=== PATIENT | female | born 1985 | race African-American/Black ===

== ENCOUNTER 2020-10-21 09:40 | Inpatient (IN) | payer OTHER ==
[2020-10-21] MEDS ORDERED: ACETAMINOPHEN 1000 MG/100 ML VIAL (NON FORMULARY) IVPB ONE (10:42)
[2020-10-21] MEDS ORDERED: SODIUM CHLORIDE 0.9% 500 ML INFUS.BAG IV ONE (10:42)
[2020-10-21] MEDS ORDERED: ACETAMINOPHEN INJECTION 100 ML IVPB ONE (10:47)
[2020-10-21 11:52] LABS: VENOUS BASE EXCESS 4.1 mmol/L (-2-2); VENOUS O2 SATURATION 54.7 % (70-80); VENOUS PCO2 65.4 mmHg (38-52); VENOUS PH 7.325 (7.310-7.410)
[2020-10-21 11:59] LABS: BASO % 0.3 % (0-2.0); EOS % 0.6 % (0-4.5); HEMATOCRIT 38.8 % (32.4-45.2); HEMOGLOBIN 13.1 GM/dL (10.7-15.3); LYMPH % 23.9 % (8-40); MCH 30.2 pg (25.7-33.7); MCHC 33.8 g/dl (32.0-36.0); MEAN CELL VOLUME 89.5 fl (80-96); MEAN PLT VOLUME 8.2 fl (7.5-11.1); MONO % 11.3 % (3.8-10.2); NEUT % 63.9 % (42.8-82.8); PLATELET COUNT 299 K/MM3 (134-434); RBC 4.34 M/mm3 (3.60-5.2); RDW 13.1 % (11.6-15.6); WHITE BLOOD COUNT 6.1 K/mm3 (4.0-10.0)
[2020-10-21 12:00] LABS: INR 1.18 (0.83-1.09); PROTHROMBIN TIME (PATIENT) 14.2 SEC (9.7-13.0)
[2020-10-21 12:03] LABS: ACTIVATED PTT 35.3 SECONDS (25.2-36.5)
[2020-10-21 12:29] LABS: CHLORIDE 99 mmol/L (98-107); POTASSIUM 3.8 mmol/L (3.5-5.1); SODIUM 138 mmol/L (136-145)
[2020-10-21 12:32] LABS: ALBUMIN 3.2 g/dl (3.4-5.0); ANION GAP 8 MMOL/L (8-16); BLOOD UREA NITROGEN 8.4 mg/dL (7-18); CALCIUM 8.6 mg/dL (8.5-10.1); CO2 31 mmol/L (21-32); GLUCOSE,RANDOM 110 mg/dL (74-106)
[2020-10-21 12:35] LABS: BILIRUBIN,DIRECT 0.1 mg/dL (0.0-0.2); CREATININE 0.7 mg/dL (0.55-1.3); SGOT/AST 12 U/L (15-37); SGPT/ALT 19 U/L (13-61)
[2020-10-21 12:36] LABS: BILIRUBIN,TOTAL 0.3 mg/dL (0.2-1); LDH 232 U/L (84-246)
[2020-10-21 12:37] LABS: TOT PROT 7.3 g/dl (6.4-8.2)
[2020-10-21 12:38] LABS: ALK PHOS 79 U/L (45-117)
[2020-10-21 12:41] LABS: N-TERMINAL BNP 10.5 pg/ml (5-125)
[2020-10-21] MEDS ORDERED: DEXAMETHASONE SOD PHOSPHATE 10 MG/1 ML VIAL IVPUSH ONE (13:04)
[2020-10-21 13:26] LABS: EPI CELLS >36 /uL (0-25.1); HYALINE CASTS 2 /uL (0-3.1); PH,URINE 6.5 (5.0-8.0); URINE APPEARANCE CLOUDY; URINE BACTERIA 1062 /uL (0-1359); URINE BILIRUBIN NEGATIVE (NEGATIVE); URINE COLOR YELLOW; URINE GLUCOSE (UA) NEGATIVE (NEGATIVE); URINE KETONE NEGATIVE (NEGATIVE); URINE LEUK ESTERASE TRACE (NEGATIVE); URINE NITRITE NEGATIVE (NEGATIVE); URINE PROTEIN NEGATIVE (NEGATIVE); URINE UROBILINOGEN 0.2 mg/dL (0.2-1.0); URINE WBC 25 /uL (0-25.8)
[2020-10-21 13:53] LABS: URINE RBC 191.7 /uL (0-23.9); YEAST NON SEEN (NEGATIVE)
[2020-10-21] MEDS ORDERED: DEXAMETHASONE SOD PHOSPHATE 10 MG/1 ML VIAL ONE (13:58)
[2020-10-21] MEDS: OSELTAMIVIR PHOSPHATE 75 MG CAPSULE PO SCH ×2 (18:46→22:07)
[2020-10-22] MEDS: BENZOCAINE/MENTH/CETYLPYRD CL 1 EACH LOZENGE MM PRN ×2 (05:01→19:37)
[2020-10-22 05:32] VITALS: BMI 66.9
[2020-10-22 07:50] LABS: BASO % 0.2 % (0-2.0); EOS % 0.1 % (0-4.5); HEMATOCRIT 38.1 % (32.4-45.2); LYMPH % 23.6 % (8-40); MCH 30.3 pg (25.7-33.7); MCHC 34.1 g/dl (32.0-36.0); MEAN CELL VOLUME 88.8 fl (80-96); MONO % 10.1 % (3.8-10.2); PLATELET COUNT 309 K/MM3 (134-434); RBC 4.29 M/mm3 (3.60-5.2)
[2020-10-22 08:24] LABS: POTASSIUM 4.2 mmol/L (3.5-5.1)
[2020-10-22 08:47] LABS: CALCIUM 8.5 mg/dL (8.5-10.1)
[2020-10-22 08:49] LABS: BLOOD UREA NITROGEN 7.2 mg/dL (7-18)
[2020-10-22 08:50] LABS: ALBUMIN 3.1 g/dl (3.4-5.0); MAGNESIUM 1.9 mg/dL (1.8-2.4)
[2020-10-22 08:53] LABS: CREATININE 0.6 mg/dL (0.55-1.3); PHOSPHOROUS 3.6 mg/dL (2.5-4.9)
[2020-10-22 08:54] LABS: BILIRUBIN,TOTAL 0.3 mg/dL (0.2-1)
[2020-10-22 08:55] LABS: TOT PROT 7.3 g/dl (6.4-8.2)
[2020-10-22] MEDS ORDERED: ENOXAPARIN NA (PORCINE) 40 MG/0.4 ML DISP.SYRIN SQ SCH (10:00)
[2020-10-22] MEDS: DEXAMETHASONE SOD PHOSPHATE 4 MG/1 ML VIAL IVPUSH SCH (11:10)
[2020-10-22] MEDS: OSELTAMIVIR PHOSPHATE 75 MG CAPSULE PO SCH ×2 (11:10→22:31)
[2020-10-22] MEDS ORDERED: REMDESIVIR 200 MG in SODIUM CHLORIDE 210 ML IVPB ONE (13:00)
[2020-10-22] MEDS ORDERED: guaiFENesin 200 MG/10 ML 10 ML UNIT-DOSE CUPS PO PRN (18:37)
[2020-10-22] MEDS: ENOXAPARIN NA (PORCINE) 40 MG/0.4 ML DISP.SYRIN SQ SCH (22:31)
[2020-10-23] MEDS: OSELTAMIVIR PHOSPHATE 75 MG CAPSULE PO SCH ×2 (09:31→21:35)
[2020-10-23] MEDS: ENOXAPARIN NA (PORCINE) 40 MG/0.4 ML DISP.SYRIN SQ SCH ×2 (09:31→21:34)
[2020-10-23] MEDS: DEXAMETHASONE SOD PHOSPHATE 4 MG/1 ML VIAL IVPUSH SCH (09:32)
[2020-10-23 10:28] LABS: HEMATOCRIT 38.6 % (32.4-45.2); HEMOGLOBIN 12.8 GM/dL (10.7-15.3); MCH 29.8 pg (25.7-33.7); MCHC 33.2 g/dl (32.0-36.0); MEAN CELL VOLUME 89.9 fl (80-96); MEAN PLT VOLUME 7.8 fl (7.5-11.1); PLATELET COUNT 360 K/MM3 (134-434); RDW 13.5 % (11.6-15.6); WHITE BLOOD COUNT 8.8 K/mm3 (4.0-10.0)
[2020-10-23] MEDS: BENZOCAINE/MENTH/CETYLPYRD CL 1 EACH LOZENGE MM PRN ×2 (10:35→17:27)
[2020-10-23 11:15] LABS: ALBUMIN 3.2 g/dl (3.4-5.0); BLOOD UREA NITROGEN 11.4 mg/dL (7-18)
[2020-10-23 11:16] LABS: CREATININE 0.8 mg/dL (0.55-1.3)
[2020-10-23 11:17] LABS: PHOSPHOROUS 3.8 mg/dL (2.5-4.9)
[2020-10-23 11:18] LABS: BILIRUBIN,TOTAL 0.4 mg/dL (0.2-1); TOT PROT 7.3 g/dl (6.4-8.2)
[2020-10-23 11:27] LABS: POTASSIUM 3.8 mmol/L (3.5-5.1)
[2020-10-23] MEDS: REMDESIVIR 100 MG in SODIUM CHLORIDE 230 ML IVPB SCH (12:53)
[2020-10-23 17:31] LABS: N-TERMINAL BNP 7.5 pg/ml (5-125)
[2020-10-24] MEDS: ENOXAPARIN NA (PORCINE) 40 MG/0.4 ML DISP.SYRIN SQ SCH ×2 (09:54→22:08)
[2020-10-24] MEDS: OSELTAMIVIR PHOSPHATE 75 MG CAPSULE PO SCH ×2 (09:54→22:08)
[2020-10-24] MEDS: DEXAMETHASONE SOD PHOSPHATE 4 MG/1 ML VIAL IVPUSH SCH (09:54)
[2020-10-24 10:27] LABS: HEMATOCRIT 38.4 % (32.4-45.2); HEMOGLOBIN 12.8 GM/dL (10.7-15.3); MCHC 33.4 g/dl (32.0-36.0); MEAN PLT VOLUME 7.9 fl (7.5-11.1); PLATELET COUNT 358 K/MM3 (134-434); RBC 4.27 M/mm3 (3.60-5.2); RDW 13.4 % (11.6-15.6); WHITE BLOOD COUNT 7.8 K/mm3 (4.0-10.0)
[2020-10-24 10:43] LABS: POTASSIUM 3.6 mmol/L (3.5-5.1)
[2020-10-24 10:46] LABS: ALBUMIN 3.3 g/dl (3.4-5.0); CALCIUM 9.1 mg/dL (8.5-10.1)
[2020-10-24 10:49] LABS: CREATININE 0.7 mg/dL (0.55-1.3)
[2020-10-24 10:51] LABS: BILIRUBIN,TOTAL 0.6 mg/dL (0.2-1)
[2020-10-24 10:52] LABS: TOT PROT 7.8 g/dl (6.4-8.2)
[2020-10-24] MEDS: REMDESIVIR 100 MG in SODIUM CHLORIDE 230 ML IVPB SCH (13:01)
[2020-10-25 08:31] LABS: HEMATOCRIT 37.5 % (32.4-45.2); HEMOGLOBIN 12.7 GM/dL (10.7-15.3); MCH 30.2 pg (25.7-33.7); MCHC 33.8 g/dl (32.0-36.0); MEAN CELL VOLUME 89.4 fl (80-96); MEAN PLT VOLUME 7.8 fl (7.5-11.1); PLATELET COUNT 364 K/MM3 (134-434); RDW 13.3 % (11.6-15.6); WHITE BLOOD COUNT 6.8 K/mm3 (4.0-10.0)
[2020-10-25 09:03] LABS: POTASSIUM 4.1 mmol/L (3.5-5.1)
[2020-10-25 09:11] LABS: CALCIUM 8.9 mg/dL (8.5-10.1)
[2020-10-25 09:14] LABS: CREATININE 0.6 mg/dL (0.55-1.3)
[2020-10-25] MEDS: DEXAMETHASONE SOD PHOSPHATE 4 MG/1 ML VIAL IVPUSH SCH (09:37)
[2020-10-25] MEDS: ENOXAPARIN NA (PORCINE) 40 MG/0.4 ML DISP.SYRIN SQ SCH ×2 (09:37→21:07)
[2020-10-25] MEDS: OSELTAMIVIR PHOSPHATE 75 MG CAPSULE PO SCH ×2 (09:37→21:07)
[2020-10-25] MEDS: REMDESIVIR 100 MG in SODIUM CHLORIDE 230 ML IVPB SCH (13:31)
[2020-10-26 06:40] VITALS: BP 132/80; PULSE 50; TEMP 98
[2020-10-26 09:05] LABS: HEMATOCRIT 37.6 % (32.4-45.2); HEMOGLOBIN 12.3 GM/dL (10.7-15.3); MCH 29.4 pg (25.7-33.7); MCHC 32.8 g/dl (32.0-36.0); MEAN CELL VOLUME 89.7 fl (80-96); MEAN PLT VOLUME 7.7 fl (7.5-11.1); PLATELET COUNT 396 K/MM3 (134-434); RBC 4.19 M/mm3 (3.60-5.2); RDW 13.3 % (11.6-15.6); WHITE BLOOD COUNT 9.4 K/mm3 (4.0-10.0)
[2020-10-26 09:57] LABS: ALBUMIN 3.1 g/dl (3.4-5.0); BLOOD UREA NITROGEN 12.8 mg/dL (7-18); CALCIUM 8.8 mg/dL (8.5-10.1)
[2020-10-26 10:02] LABS: BILIRUBIN,TOTAL 1.2 mg/dL (0.2-1); TOT PROT 7.5 g/dl (6.4-8.2)
[2020-10-26 10:03] LABS: CREATININE 0.6 mg/dL (0.55-1.3)
[2020-10-26] MEDS: ENOXAPARIN NA (PORCINE) 40 MG/0.4 ML DISP.SYRIN SQ SCH ×2 (10:48→22:01)
[2020-10-26] MEDS: OSELTAMIVIR PHOSPHATE 75 MG CAPSULE PO SCH (10:49)
[2020-10-26] MEDS: DEXAMETHASONE SOD PHOSPHATE 4 MG/1 ML VIAL IVPUSH SCH (10:49)
[2020-10-26] MEDS: REMDESIVIR 100 MG in SODIUM CHLORIDE 230 ML IVPB SCH (12:31)
== END 2020-10-26 22:40 | disposition home or self-care (01) | DRG 137 ==
LOC: JER 09:40 → JERBED 12:56 → J8W 10-22 04:22
PROVIDERS: ADMIT Internal Medicine; ATTEND Internal Medicine
PROC: XW13325 Transfusion of Convalescent Plasma (Nonautologous) into Peripheral Vein, Percutaneous Approach, New Technology Group 5 (ICD-10-PCS; principal; 2020-10-22)
PROC: XW033E5 Introduction of Remdesivir Anti-infective into Peripheral Vein, Percutaneous Approach, New Technology Group 5 (ICD-10-PCS; 2020-10-22)
DX: U07.1 COVID-19 (principal); J96.01 Acute respiratory failure with hypoxia; J12.82 Pneumonia due to coronavirus disease 2019; J10.08 Influenza due to other identified influenza virus with other specified pneumonia; E66.01 Morbid (severe) obesity due to excess calories; Z68.44 Body mass index [BMI] 60.0-69.9, adult; J98.11 Atelectasis; J20.8 Acute bronchitis due to other specified organisms; F17.210 Nicotine dependence, cigarettes, uncomplicated; J44.0 Chronic obstructive pulmonary disease with (acute) lower respiratory infection; R73.03 Prediabetes
CPT/HCPCS: 36415; 36430; 71045-TC-FY; 80048; 80053; 80061; 81003; 82248; 82550; 82728; 82803; 83036; 83605; 83615; 83721; 83735; 83880; 84100; 84443; 84484; 84703; 85025; 85027; 85379; 85610; 85730; 86140; 86850; 86900; 86901; 87040; 87086; 87804; 87899; 93005; 93010; 94761; 99285-25; C9399; C9803; J0131; J1100; P9017; U0003

== ENCOUNTER 2022-08-07 13:43 | Inpatient (IN) | payer OTHER ==
[2022-08-07 18:52] LABS: BASO % 0.3 % (0-2.0); EOS % 2.3 % (0-4.5); HEMATOCRIT 38.4 % (32.4-45.2); HEMOGLOBIN 12.7 GM/dL (10.7-15.3); LYMPH % 30.2 % (8-40); MCH 29.7 pg (25.7-33.7); MCHC 33.1 g/dl (32.0-36.0); MEAN CELL VOLUME 89.8 fl (80-96); MEAN PLT VOLUME 8.1 fl (7.5-11.1); MONO % 15.9 % (3.8-10.2); NEUT % 51.3 % (42.8-82.8); PLATELET COUNT 367 10^3/uL (134-434); RBC 4.28 M/mm3 (3.60-5.2); RDW 14.1 % (11.6-15.6)
[2022-08-07 19:01] LABS: INR 1.14 (0.83-1.09); PROTHROMBIN TIME (PATIENT) 13.1 SEC (9.7-13.0)
[2022-08-07 19:04] LABS: ACTIVATED PTT 31.4 SECONDS (25.2-36.5)
[2022-08-07 20:55] LABS: ALBUMIN 3.4 g/dl (3.4-5.0); BLOOD UREA NITROGEN 7.4 mg/dL (7-18); CALCIUM 8.4 mg/dL (8.5-10.1)
[2022-08-07 20:59] LABS: CREATININE 0.6 mg/dL (0.55-1.3)
[2022-08-07 21:00] LABS: BILIRUBIN,TOTAL 0.3 mg/dL (0.2-1); TOT PROT 7.5 g/dl (6.4-8.2)
[2022-08-07] MEDS ORDERED: ALBUTEROL SO4 2.5/IPRATROPIUM 0.5 INH SOL 3 ML VIAL.NEB. NEB PRN (23:57)
[2022-08-07] MEDS ORDERED: ALBUTEROL SO4 HFA INHALER IH PRN (23:57)
[2022-08-08] MEDS ORDERED: REMDESIVIR 200 MG in SODIUM CHLORIDE 250 ML IVPB ONE (02:00)
[2022-08-08] MEDS: DEXAMETHASONE SOD PHOSPHATE 10 MG/1 ML VIAL IVPUSH SCH (10:01)
[2022-08-08] MEDS: ENOXAPARIN NA (PORCINE) 40 MG/0.4 ML DISP.SYRIN SQ SCH (10:01)
[2022-08-08] MEDS: BUDESONIDE/FORMETEROL FUMARATE 80/4.5 mcg INHALER IH SCH ×2 (10:21→22:14)
[2022-08-08 11:55] LABS: BASO % 0.6 % (0-2.0); EOS % 3.3 % (0-4.5); HEMATOCRIT 39.2 % (32.4-45.2); HEMOGLOBIN 12.8 GM/dL (10.7-15.3); LYMPH % 26.6 % (8-40); MCH 29.5 pg (25.7-33.7); MCHC 32.6 g/dl (32.0-36.0); MEAN CELL VOLUME 90.6 fl (80-96); MEAN PLT VOLUME 8.2 fl (7.5-11.1); MONO % 13.7 % (3.8-10.2); NEUT % 55.8 % (42.8-82.8); PLATELET COUNT 360 10^3/uL (134-434); RBC 4.33 M/mm3 (3.60-5.2); RDW 14.3 % (11.6-15.6); WHITE BLOOD COUNT 8.3 K/mm3 (4.0-10.0)
[2022-08-08 12:31] LABS: ALBUMIN 3.3 g/dl (3.4-5.0)
[2022-08-08 12:32] LABS: CREATININE 0.7 mg/dL (0.55-1.3); TOT PROT 7.8 g/dl (6.4-8.2)
[2022-08-08 12:34] LABS: CALCIUM 8.9 mg/dL (8.5-10.1)
[2022-08-08 12:35] LABS: MAGNESIUM 2.2 mg/dL (1.8-2.4); PHOSPHOROUS 4.9 mg/dL (2.5-4.9)
[2022-08-08 12:41] LABS: BILIRUBIN,TOTAL 0.4 mg/dL (0.2-1)
[2022-08-08 15:14] LABS: ARTERIAL BLD GAS O2 SATURATION 96.4 % (95-98); ARTERIAL BLOOD GAS BASE EXCESS 9.4 mmol/L (-2-2); ARTERIAL BLOOD GAS PO2 89.9 mmHg (80-100); ARTERIAL BLOOD GAS pH 7.375 (7.350-7.450)
[2022-08-08 15:15] LABS: ALLENS TEST POSITIVE
[2022-08-09] MEDS: REMDESIVIR 100 MG in SODIUM CHLORIDE 250 ML IVPB SCH (03:20)
[2022-08-09] MEDS: ENOXAPARIN NA (PORCINE) 40 MG/0.4 ML DISP.SYRIN SQ SCH ×2 (09:12→21:50)
[2022-08-09] MEDS: DEXAMETHASONE SOD PHOSPHATE 10 MG/1 ML VIAL IVPUSH SCH (09:12)
[2022-08-09] MEDS: BUDESONIDE/FORMETEROL FUMARATE 80/4.5 mcg INHALER IH SCH ×2 (09:13→21:50)
[2022-08-09 10:47] LABS: BASO % 0.2 % (0-2.0); EOS % 1.9 % (0-4.5); HEMATOCRIT 37.6 % (32.4-45.2); HEMOGLOBIN 12.2 GM/dL (10.7-15.3); MCH 29.4 pg (25.7-33.7); MCHC 32.5 g/dl (32.0-36.0); MEAN CELL VOLUME 90.4 fl (80-96); MEAN PLT VOLUME 7.9 fl (7.5-11.1); MONO % 10.7 % (3.8-10.2); NEUT % 57.2 % (42.8-82.8); PLATELET COUNT 376 10^3/uL (134-434); RBC 4.16 M/mm3 (3.60-5.2); RDW 14.2 % (11.6-15.6); WHITE BLOOD COUNT 7.1 K/mm3 (4.0-10.0)
[2022-08-09 11:06] LABS: ALBUMIN 3.1 g/dl (3.4-5.0); CALCIUM 8.8 mg/dL (8.5-10.1)
[2022-08-09 11:09] LABS: CREATININE 0.7 mg/dL (0.55-1.3)
[2022-08-09 11:11] LABS: BILIRUBIN,TOTAL 0.6 mg/dL (0.2-1); TOT PROT 7.1 g/dl (6.4-8.2)
[2022-08-10] MEDS: REMDESIVIR 100 MG in SODIUM CHLORIDE 250 ML IVPB SCH (02:23)
[2022-08-10] MEDS: DEXAMETHASONE SOD PHOSPHATE 10 MG/1 ML VIAL IVPUSH SCH (10:15)
[2022-08-10] MEDS: ENOXAPARIN NA (PORCINE) 40 MG/0.4 ML DISP.SYRIN SQ SCH ×2 (10:15→21:27)
[2022-08-10] MEDS: BUDESONIDE/FORMETEROL FUMARATE 80/4.5 mcg INHALER IH SCH ×2 (10:23→21:28)
[2022-08-10 13:32] VITALS: BMI 60.0
[2022-08-11] MEDS: REMDESIVIR 100 MG in SODIUM CHLORIDE 250 ML IVPB SCH (01:15)
[2022-08-11] MEDS: DEXAMETHASONE SOD PHOSPHATE 10 MG/1 ML VIAL IVPUSH SCH (09:31)
[2022-08-11] MEDS: ENOXAPARIN NA (PORCINE) 40 MG/0.4 ML DISP.SYRIN SQ SCH ×2 (09:32→22:00)
[2022-08-11] MEDS: BUDESONIDE/FORMETEROL FUMARATE 80/4.5 mcg INHALER IH SCH ×2 (09:32→22:00)
[2022-08-11 12:06] LABS: BASO % 0.7 % (0-2.0); EOS % 0.6 % (0-4.5); HEMATOCRIT 36.3 % (32.4-45.2); HEMOGLOBIN 11.8 GM/dL (10.7-15.3); MCH 29.3 pg (25.7-33.7); MCHC 32.5 g/dl (32.0-36.0); MEAN CELL VOLUME 89.9 fl (80-96); MEAN PLT VOLUME 8.2 fl (7.5-11.1); MONO % 9.9 % (3.8-10.2); NEUT % 52.8 % (42.8-82.8); PLATELET COUNT 387 10^3/uL (134-434); RBC 4.04 M/mm3 (3.60-5.2); RDW 13.9 % (11.6-15.6); WHITE BLOOD COUNT 8.1 K/mm3 (4.0-10.0)
[2022-08-11 12:37] LABS: CALCIUM 8.5 mg/dL (8.5-10.1)
[2022-08-11 12:38] LABS: BLOOD UREA NITROGEN 13.4 mg/dL (7-18)
[2022-08-11 12:41] LABS: CREATININE 0.7 mg/dL (0.55-1.3)
[2022-08-12] MEDS: REMDESIVIR 100 MG in SODIUM CHLORIDE 250 ML IVPB SCH (02:11)
[2022-08-12] MEDS ORDERED: guaiFENesin/D-METHORPHAN HB 10 ML UNIT-DOSE CUPS PO PRN (08:56)
[2022-08-12] MEDS: DEXAMETHASONE SOD PHOSPHATE 10 MG/1 ML VIAL IVPUSH SCH (10:31)
[2022-08-12] MEDS: ENOXAPARIN NA (PORCINE) 40 MG/0.4 ML DISP.SYRIN SQ SCH (10:32)
[2022-08-12] MEDS: BUDESONIDE/FORMETEROL FUMARATE 80/4.5 mcg INHALER IH SCH (10:32)
[2022-08-12 11:32] LABS: BASO % 0.4 % (0-2.0); EOS % 0.5 % (0-4.5); HEMATOCRIT 36.6 % (32.4-45.2); LYMPH % 30.1 % (8-40); MCH 29.4 pg (25.7-33.7); MCHC 32.9 g/dl (32.0-36.0); MEAN CELL VOLUME 89.4 fl (80-96); MEAN PLT VOLUME 7.9 fl (7.5-11.1); MONO % 14.5 % (3.8-10.2); NEUT % 54.5 % (42.8-82.8); PLATELET COUNT 428 10^3/uL (134-434); RBC 4.09 M/mm3 (3.60-5.2)
[2022-08-12 11:35] LABS: CALCIUM 9.2 mg/dL (8.5-10.1)
[2022-08-12 11:36] LABS: BLOOD UREA NITROGEN 13.2 mg/dL (7-18)
[2022-08-12 11:37] LABS: CREATININE 0.7 mg/dL (0.55-1.3)
[2022-08-12 11:38] LABS: BILIRUBIN,TOTAL 0.3 mg/dL (0.2-1); TOT PROT 7.1 g/dl (6.4-8.2)
[2022-08-12 14:08] VITALS: BP 122/80; PULSE 63; RESP 18; TEMP 97.9
== END 2022-08-12 16:54 | disposition home or self-care (01) | DRG 137 ==
LOC: JER 13:43 → JERBED 22:13 → J6S 08-08 04:12
PROVIDERS: ADMIT Internal Medicine; ATTEND Internal Medicine
PROC: XW033E5 Introduction of Remdesivir Anti-infective into Peripheral Vein, Percutaneous Approach, New Technology Group 5 (ICD-10-PCS; principal; 2022-08-08)
DX: U07.1 COVID-19 (principal); J12.82 Pneumonia due to coronavirus disease 2019; J96.01 Acute respiratory failure with hypoxia; E66.01 Morbid (severe) obesity due to excess calories; Z68.44 Body mass index [BMI] 60.0-69.9, adult; E87.29 Other acidosis; J98.11 Atelectasis; I10 Essential (primary) hypertension; J45.909 Unspecified asthma, uncomplicated; F17.210 Nicotine dependence, cigarettes, uncomplicated; G47.33 Obstructive sleep apnea (adult) (pediatric)
CPT/HCPCS: 0241U-QW; 36415; 36600; 71046-TC-FY; 71250-TC; 80048; 80053; 82803; 83735; 84100; 84484; 84703; 85025; 85379; 85610; 85730; 86140; 93005; 93010; 94010; 94660; 94761; 99285-25; C9399; J1100

== ENCOUNTER 2023-10-19 22:16 | Inpatient (IN) | payer OTHER ==
[2023-10-19 22:21] VITALS: BMI 55.8
[2023-10-19] MEDS ORDERED: ALBUTEROL SO4 2.5/IPRATROPIUM 0.5 INH SOL 3 ML VIAL.NEB. NEB ONE ×2 (22:28→22:31)
[2023-10-19] MEDS: ALBUTEROL SO4 2.5/IPRATROPIUM 0.5 INH SOL 3 ML VIAL.NEB. NEB SCH (22:40)
[2023-10-19 23:03] LABS: BASO % 0.4 % (0-2.0); EOS % 0.2 % (0-4.5); HEMOGLOBIN 12.5 GM/dL (10.7-15.3); LYMPH % 26.4 % (8-40); MCH 29.4 pg (25.7-33.7); MEAN CELL VOLUME 89.1 fl (80-96); MEAN PLT VOLUME 7.7 fl (7.5-11.1); MONO % 16.7 % (3.8-10.2); NEUT % 56.3 % (42.8-82.8); PLATELET COUNT 276 10^3/uL (134-434); RBC 4.26 M/mm3 (3.60-5.2); RDW 15.1 % (11.6-15.6)
[2023-10-19] MEDS ORDERED: DEXAMETHASONE 4 MG TABLET (FP) ONE (23:04)
[2023-10-19] MEDS: DEXAMETHASONE 4 MG TABLET (FP) PO ONE (23:06)
[2023-10-19 23:11] LABS: CHLORIDE 99 mmol/L (98-107); POTASSIUM 3.2 mmol/L (3.5-5.1); SODIUM 140 mmol/L (136-145)
[2023-10-19 23:13] LABS: ALBUMIN 3.2 g/dl (3.4-5.0); CALCIUM 8.4 mg/dL (8.5-10.1)
[2023-10-19 23:14] LABS: ANION GAP 5 mmol/L (4-13); BLOOD UREA NITROGEN 13.5 mg/dL (7-18); CO2 36 mmol/L (21-32); GLUCOSE,RANDOM 121 mg/dL (74-106)
[2023-10-19 23:17] LABS: SGOT/AST 58 U/L (15-37); SGPT/ALT 40 U/L (13-61)
[2023-10-19 23:18] LABS: BILIRUBIN,TOTAL 0.2 mg/dL (0.2-1); TOT PROT 7.4 g/dl (6.4-8.2)
[2023-10-19 23:19] LABS: ALK PHOS 64 U/L (45-117)
[2023-10-19 23:22] LABS: N-TERMINAL BNP 66.8 pg/ml (5-125)
[2023-10-20] MEDS ORDERED: ALBUTEROL SO4 2.5/IPRATROPIUM 0.5 INH SOL 3 ML VIAL.NEB. NEB ONE ×5 (01:38→18:05)
[2023-10-20] MEDS ORDERED: POTASSIUM CHLORIDE TABS 20 MEQ TABLET.ER (FP) PO ONE ×2 (02:11→06:28)
[2023-10-20] MEDS: POTASSIUM CHLORIDE TABS 20 MEQ TABLET.ER (FP) PO ONE (02:16)
[2023-10-20] MEDS ORDERED: methylPREDNISolone NA SUCC 40 MG/1 ML VIAL ONE (06:29)
[2023-10-20] MEDS ORDERED: KCL 10 MEQ IVPB 20 MEQ/200 ML INFUS.BAG IVPB ONE (06:29)
[2023-10-20 06:48] LABS: BASO % 0.2 % (0-2.0); HEMATOCRIT 37.1 % (32.4-45.2); HEMOGLOBIN 12.5 GM/dL (10.7-15.3); LYMPH % 11.3 % (8-40); MCH 29.7 pg (25.7-33.7); MCHC 33.6 g/dl (32.0-36.0); MEAN CELL VOLUME 88.6 fl (80-96); MEAN PLT VOLUME 7.9 fl (7.5-11.1); MONO % 6.9 % (3.8-10.2); NEUT % 81.6 % (42.8-82.8); PLATELET COUNT 288 10^3/uL (134-434); RBC 4.19 M/mm3 (3.60-5.2); RDW 15.1 % (11.6-15.6); WHITE BLOOD COUNT 4.3 K/mm3 (4.0-10.0)
[2023-10-20] MEDS: POTASSIUM CHLORIDE ORAL LIQUID 20 MEQ/15 ML PO ONE (06:50)
[2023-10-20 06:59] LABS: POTASSIUM 3.8 mmol/L (3.5-5.1)
[2023-10-20 07:03] LABS: ALBUMIN 3.1 g/dl (3.4-5.0); BLOOD UREA NITROGEN 14.2 mg/dL (7-18); CALCIUM 8.5 mg/dL (8.5-10.1); MAGNESIUM 1.9 mg/dL (1.8-2.4)
[2023-10-20] MEDS: KCL 10 MEQ IVPB 10 MEQ/100 ML INFUS.BAG IVPB SCH (07:04)
[2023-10-20] MEDS: methylPREDNISolone NA SUCC 40 MG/1 ML VIAL IVPUSH SCH (07:04)
[2023-10-20 07:06] LABS: CREATININE 0.9 mg/dL (0.55-1.3)
[2023-10-20 07:08] LABS: BILIRUBIN,TOTAL 0.2 mg/dL (0.2-1); TOT PROT 7.6 g/dl (6.4-8.2)
[2023-10-20 07:09] LABS: N-TERMINAL BNP 28.1 pg/ml (5-125)
[2023-10-20] MEDS: ENOXAPARIN NA (PORCINE) 40 MG/0.4 ML DISP.SYRIN SQ SCH (09:17)
[2023-10-20] MEDS: OSELTAMIVIR PHOSPHATE 75 MG CAPSULE PO SCH (09:17)
[2023-10-20] MEDS: ALBUTEROL SO4 2.5/IPRATROPIUM 0.5 INH SOL 3 ML VIAL.NEB. NEB SCH (09:45)
[2023-10-20] MEDS ORDERED: ENOXAPARIN NA (PORCINE) 40 MG/0.4 ML DISP.SYRIN SQ SCH (10:00)
[2023-10-20] MEDS ORDERED: methylPREDNISolone NA SUCC 40 MG/1 ML VIAL IVPUSH SCH (10:00)
[2023-10-20] MEDS ORDERED: AZITHROMYCIN IVPB 500 MG/250 ML BAG IVPB SCH (10:00)
[2023-10-20] MEDS ORDERED: VANCOMYCIN 1 GRAM (PRE-DOCKED) 1,000 MG/250 ML BAG IVPB ONE (11:50)
[2023-10-20] MEDS: VANCOMYCIN/WATER FOR INJ (PEG) 1,000 MG/200 ML BAG IVPB ONE (12:06)
[2023-10-20] MEDS: BUDESONIDE/FORMETEROL FUMARATE 80/4.5 mcg INHALER IH SCH (13:32)
[2023-10-20] MEDS: ALBUTEROL SO4 2.5/IPRATROPIUM 0.5 INH SOL 3 ML VIAL.NEB. NEB PRN (16:45)
[2023-10-20] MEDS ORDERED: OSELTAMIVIR PHOSPHATE 75 MG CAPSULE ONE (22:42)
[2023-10-20] MEDS ORDERED: ENOXAPARIN NA (PORCINE) 40 MG/0.4 ML DISP.SYRIN SQ ONE (22:45)
[2023-10-21] MEDS ORDERED: methylPREDNISolone NA SUCC 40 MG/1 ML VIAL ONE ×2 (10:09→17:02)
[2023-10-21] MEDS ORDERED: ALBUTEROL SO4 2.5/IPRATROPIUM 0.5 INH SOL 3 ML VIAL.NEB. NEB ONE ×3 (10:09→21:42)
[2023-10-21] MEDS ORDERED: CEFTRIAXONE 1 GM/50 ML BAG ONE (10:09)
[2023-10-21] MEDS ORDERED: OSELTAMIVIR PHOSPHATE 75 MG CAPSULE ONE ×2 (10:09→21:55)
[2023-10-21] MEDS ORDERED: ENOXAPARIN NA (PORCINE) 40 MG/0.4 ML DISP.SYRIN SQ ONE ×2 (10:09→21:55)
[2023-10-21] MEDS: ALBUTEROL SO4 2.5/IPRATROPIUM 0.5 INH SOL 3 ML VIAL.NEB. NEB SCH (10:24)
[2023-10-21] MEDS: FUROSEMIDE 40 MG/4 ML INJECTABLE VIAL IVPUSH ONE (10:24)
[2023-10-21] MEDS: methylPREDNISolone NA SUCC 40 MG/1 ML VIAL IVPUSH SCH ×2 (10:25→17:13)
[2023-10-21] MEDS: CEFTRIAXONE 1 GM in DEXTROSE 5%-WATER - 50 ML IVPB SCH (10:25)
[2023-10-22] MEDS ORDERED: methylPREDNISolone NA SUCC 40 MG/1 ML VIAL ONE (01:48)
[2023-10-22 07:22] LABS: HEMATOCRIT 39.8 % (32.4-45.2); HEMOGLOBIN 13.1 GM/dL (10.7-15.3); MCH 29.6 pg (25.7-33.7); MCHC 32.9 g/dl (32.0-36.0); MEAN PLT VOLUME 8.2 fl (7.5-11.1); PLATELET COUNT 319 10^3/uL (134-434); RBC 4.42 M/mm3 (3.60-5.2); RDW 14.4 % (11.6-15.6); WHITE BLOOD COUNT 5.7 K/mm3 (4.0-10.0)
[2023-10-22 07:43] LABS: POTASSIUM 4.6 mmol/L (3.5-5.1)
[2023-10-22 07:50] LABS: CALCIUM 9.2 mg/dL (8.5-10.1)
[2023-10-22 07:51] LABS: ALBUMIN 3.2 g/dl (3.4-5.0); BLOOD UREA NITROGEN 16.6 mg/dL (7-18)
[2023-10-22 07:54] LABS: CREATININE 0.7 mg/dL (0.55-1.3)
[2023-10-22 07:56] LABS: BILIRUBIN,TOTAL 0.2 mg/dL (0.2-1); TOT PROT 7.8 g/dl (6.4-8.2)
[2023-10-22] MEDS ORDERED: ALBUTEROL SO4 2.5/IPRATROPIUM 0.5 INH SOL 3 ML VIAL.NEB. NEB ONE ×3 (09:05→15:14)
[2023-10-22] MEDS ORDERED: CEFTRIAXONE 1 GM/50 ML BAG ONE (09:06)
[2023-10-22] MEDS ORDERED: FUROSEMIDE 40 MG/4 ML INJECTABLE VIAL ONE (15:14)
[2023-10-22] MEDS: FUROSEMIDE 40 MG/4 ML INJECTABLE VIAL IVPUSH ONE (15:18)
[2023-10-23 07:44] LABS: HEMATOCRIT 38.6 % (32.4-45.2); HEMOGLOBIN 12.7 GM/dL (10.7-15.3); MCH 29.3 pg (25.7-33.7); MCHC 32.7 g/dl (32.0-36.0); MEAN CELL VOLUME 89.6 fl (80-96); MEAN PLT VOLUME 8.4 fl (7.5-11.1); PLATELET COUNT 343 10^3/uL (134-434); RBC 4.31 M/mm3 (3.60-5.2); WHITE BLOOD COUNT 7.8 K/mm3 (4.0-10.0)
[2023-10-23 08:26] LABS: POTASSIUM 4.5 mmol/L (3.5-5.1)
[2023-10-23 08:28] LABS: BLOOD UREA NITROGEN 20.6 mg/dL (7-18); CALCIUM 9.4 mg/dL (8.5-10.1)
[2023-10-23 08:32] LABS: CREATININE 0.7 mg/dL (0.55-1.3)
[2023-10-23 17:23] LABS: ARTERIAL BLD GAS O2 SATURATION 93.8 % (95-98); ARTERIAL BLOOD GAS PO2 69.2 mmHg (80-100); ARTERIAL BLOOD GAS pH 7.407 (7.350-7.450)
[2023-10-23 17:24] LABS: ALLENS TEST POSITIVE
[2023-10-24 09:09] LABS: HEMATOCRIT 37.3 % (32.4-45.2); HEMOGLOBIN 12.1 GM/dL (10.7-15.3); MCH 28.9 pg (25.7-33.7); MCHC 32.5 g/dl (32.0-36.0); MEAN CELL VOLUME 89.1 fl (80-96); MEAN PLT VOLUME 8.2 fl (7.5-11.1); PLATELET COUNT 355 10^3/uL (134-434); RBC 4.18 M/mm3 (3.60-5.2); RDW 14.5 % (11.6-15.6); WHITE BLOOD COUNT 11.1 K/mm3 (4.0-10.0)
[2023-10-24 09:30] LABS: POTASSIUM 4.5 mmol/L (3.5-5.1)
[2023-10-24 09:35] LABS: ALBUMIN 2.9 g/dl (3.4-5.0); BLOOD UREA NITROGEN 18.1 mg/dL (7-18); CALCIUM 9.4 mg/dL (8.5-10.1)
[2023-10-24 09:38] LABS: CREATININE 0.7 mg/dL (0.55-1.3)
[2023-10-24 09:40] LABS: BILIRUBIN,TOTAL 0.3 mg/dL (0.2-1); TOT PROT 7.1 g/dl (6.4-8.2)
[2023-10-24] MEDS ORDERED: AMOX TR/POT CLAV 875MG/125MG TABLETS (FP) PO SCH (17:30)
[2023-10-24] MEDS: methylPREDNISolone NA SUCC 40 MG/1 ML VIAL IVPUSH SCH (21:08)
[2023-10-25] MEDS: AMOX TR/POT CLAV 875MG/125MG TABLETS (FP) PO SCH (09:16)
[2023-10-25 09:20] LABS: HEMATOCRIT 37.9 % (32.4-45.2); HEMOGLOBIN 12.5 GM/dL (10.7-15.3); MCH 29.4 pg (25.7-33.7); MEAN CELL VOLUME 89.2 fl (80-96); MEAN PLT VOLUME 7.8 fl (7.5-11.1); PLATELET COUNT 398 10^3/uL (134-434); RBC 4.24 M/mm3 (3.60-5.2); RDW 14.4 % (11.6-15.6); WHITE BLOOD COUNT 14.8 K/mm3 (4.0-10.0)
[2023-10-25 09:34] LABS: POTASSIUM 4.1 mmol/L (3.5-5.1)
[2023-10-25 09:39] LABS: BLOOD UREA NITROGEN 18.3 mg/dL (7-18)
[2023-10-25 09:42] LABS: CREATININE 0.7 mg/dL (0.55-1.3)
[2023-10-26 08:48] LABS: HEMOGLOBIN 11.9 GM/dL (10.7-15.3); MCH 29.5 pg (25.7-33.7); MCHC 33.2 g/dl (32.0-36.0); MEAN PLT VOLUME 7.6 fl (7.5-11.1); PLATELET COUNT 388 10^3/uL (134-434); RBC 4.04 M/mm3 (3.60-5.2); RDW 14.2 % (11.6-15.6); WHITE BLOOD COUNT 14.3 K/mm3 (4.0-10.0)
[2023-10-26 09:07] LABS: POTASSIUM 4.5 mmol/L (3.5-5.1)
[2023-10-26 09:10] LABS: BLOOD UREA NITROGEN 17.1 mg/dL (7-18); CALCIUM 9.4 mg/dL (8.5-10.1)
[2023-10-26 09:13] LABS: CREATININE 0.7 mg/dL (0.55-1.3)
[2023-10-26 09:15] LABS: BILIRUBIN,TOTAL 0.4 mg/dL (0.2-1); TOT PROT 7.1 g/dl (6.4-8.2)
[2023-10-27] MEDS: ALBUTEROL SO4 2.5/IPRATROPIUM 0.5 INH SOL 3 ML VIAL.NEB. NEB PRN (07:30)
[2023-10-27] MEDS: AMOX TR/POT CLAV 875MG/125MG TABLETS (FP) PO SCH (08:07)
[2023-10-27] MEDS: BUDESONIDE/FORMETEROL FUMARATE 80/4.5 mcg INHALER IH SCH (09:07)
[2023-10-27] MEDS: ENOXAPARIN NA (PORCINE) 40 MG/0.4 ML DISP.SYRIN SQ SCH (09:07)
[2023-10-27] MEDS: methylPREDNISolone NA SUCC 40 MG/1 ML VIAL IVPUSH SCH ×2 (09:07→21:24)
[2023-10-27 09:20] LABS: HEMATOCRIT 37.6 % (32.4-45.2); HEMOGLOBIN 12.6 GM/dL (10.7-15.3); MCH 29.7 pg (25.7-33.7); MCHC 33.5 g/dl (32.0-36.0); MEAN CELL VOLUME 88.8 fl (80-96); MEAN PLT VOLUME 7.4 fl (7.5-11.1); PLATELET COUNT 470 10^3/uL (134-434); RBC 4.23 M/mm3 (3.60-5.2); RDW 14.9 % (11.6-15.6); WHITE BLOOD COUNT 14.8 K/mm3 (4.0-10.0)
[2023-10-27 09:39] LABS: POTASSIUM 4.1 mmol/L (3.5-5.1)
[2023-10-27 09:52] LABS: CALCIUM 9.5 mg/dL (8.5-10.1)
[2023-10-27 09:54] LABS: CREATININE 0.8 mg/dL (0.55-1.3)
[2023-10-27 09:57] LABS: BILIRUBIN,TOTAL 0.3 mg/dL (0.2-1)
[2023-10-27] MEDS: DOXYCYCLINE HYCLATE 100 MG CAPSULE PO SCH (21:25)
[2023-10-28 08:56] LABS: BASO % 0.1 % (0-2.0); EOS % 0.3 % (0-4.5); HEMOGLOBIN 12.2 GM/dL (10.7-15.3); LYMPH % 17.6 % (8-40); MCH 28.8 pg (25.7-33.7); MCHC 32.1 g/dl (32.0-36.0); MEAN CELL VOLUME 89.5 fl (80-96); MEAN PLT VOLUME 7.4 fl (7.5-11.1); MONO % 12.4 % (3.8-10.2); NEUT % 69.6 % (42.8-82.8); PLATELET COUNT 473 10^3/uL (134-434); RBC 4.24 M/mm3 (3.60-5.2); RDW 14.6 % (11.6-15.6)
[2023-10-28 09:01] LABS: POTASSIUM 4.2 mmol/L (3.5-5.1)
[2023-10-28 09:05] LABS: BLOOD UREA NITROGEN 17.3 mg/dL (7-18); CALCIUM 9.2 mg/dL (8.5-10.1)
[2023-10-28 09:08] LABS: CREATININE 0.7 mg/dL (0.55-1.3)
[2023-10-28] MEDS ORDERED: methylPREDNISolone NA SUCC 40 MG/1 ML VIAL IVPUSH SCH (10:00)
[2023-10-28] MEDS ORDERED: predniSONE 20 MG TABLET (UD) PO SCH (10:00)
[2023-10-28] MEDS: predniSONE 40 MG, predniSONE 10 MG PO SCH (10:06)
[2023-10-28] MEDS: VANCOMYCIN PREMIX 1.5 GM 1,500 MG/300 ML BAG IVPB SCH (15:48)
[2023-10-29] MEDS: predniSONE 20 MG TABLET (UD) PO SCH (09:02)
[2023-10-30] MEDS: predniSONE 10 MG TABLET (UD) PO SCH (10:16)
[2023-10-30 10:17] LABS: BASO % 0.2 % (0-2.0); HEMATOCRIT 38.7 % (32.4-45.2); HEMOGLOBIN 12.7 GM/dL (10.7-15.3); LYMPH % 21.8 % (8-40); MCH 29.4 pg (25.7-33.7); MCHC 32.8 g/dl (32.0-36.0); MEAN CELL VOLUME 89.5 fl (80-96); MEAN PLT VOLUME 7.6 fl (7.5-11.1); PLATELET COUNT 470 10^3/uL (134-434); RBC 4.32 M/mm3 (3.60-5.2); RDW 14.5 % (11.6-15.6); WHITE BLOOD COUNT 16.5 K/mm3 (4.0-10.0)
[2023-10-30 10:38] LABS: POTASSIUM 3.7 mmol/L (3.5-5.1)
[2023-10-30 10:41] LABS: CALCIUM 9.2 mg/dL (8.5-10.1)
[2023-10-30 10:42] LABS: BLOOD UREA NITROGEN 13.5 mg/dL (7-18)
[2023-10-30 10:45] LABS: CREATININE 0.7 mg/dL (0.55-1.3)
[2023-10-30 15:14] VITALS: RESP 18
[2023-10-31 09:13] LABS: HEMOGLOBIN 11.6 GM/dL (10.7-15.3); MCH 29.6 pg (25.7-33.7); MCHC 33.2 g/dl (32.0-36.0); MEAN CELL VOLUME 89.2 fl (80-96); MEAN PLT VOLUME 7.6 fl (7.5-11.1); PLATELET COUNT 408 10^3/uL (134-434); RBC 3.93 M/mm3 (3.60-5.2); RDW 14.7 % (11.6-15.6); WHITE BLOOD COUNT 15.2 K/mm3 (4.0-10.0)
[2023-10-31] MEDS: COLLAGENASE CLOSTRIDIUM HIST. 30 GRAMS TUBE TP SCH (17:10)
[2023-11-01 05:12] VITALS: TEMP 98.7
[2023-11-01 07:52] LABS: BASO % 0.6 % (0-2.0); EOS % 0.5 % (0-4.5); HEMATOCRIT 35.6 % (32.4-45.2); HEMOGLOBIN 11.7 GM/dL (10.7-15.3); LYMPH % 24.6 % (8-40); MCH 29.4 pg (25.7-33.7); MCHC 32.7 g/dl (32.0-36.0); MEAN CELL VOLUME 89.9 fl (80-96); MEAN PLT VOLUME 7.8 fl (7.5-11.1); MONO % 9.4 % (3.8-10.2); NEUT % 64.9 % (42.8-82.8); PLATELET COUNT 402 10^3/uL (134-434); RBC 3.96 M/mm3 (3.60-5.2); RDW 14.4 % (11.6-15.6); WHITE BLOOD COUNT 14.9 K/mm3 (4.0-10.0)
[2023-11-01 08:11] LABS: POTASSIUM 4.2 mmol/L (3.5-5.1)
[2023-11-01 08:14] LABS: BLOOD UREA NITROGEN 13.1 mg/dL (7-18)
[2023-11-01 08:18] LABS: CREATININE 0.7 mg/dL (0.55-1.3)
[2023-11-01 09:21] VITALS: BP 115/73; PULSE 71
[2023-11-01] MEDS: predniSONE 10 MG TABLET (UD) PO SCH (09:21)
== END 2023-11-01 13:05 | disposition home or self-care (01) | DRG 133 ==
LOC: JER 22:16 → JERBED 10-20 03:56 → OBSVTOIN 10-20 05:43 → J4S 10-22 20:08 → J6S 10-27 00:18
PROVIDERS: ADMIT Internal Medicine; ATTEND Internal Medicine
DX: J96.01 Acute respiratory failure with hypoxia (principal); I24.89 Other forms of acute ischemic heart disease; I50.31 Acute diastolic (congestive) heart failure; J11.00 Influenza due to unidentified influenza virus with unspecified type of pneumonia; Z68.43 Body mass index [BMI] 50.0-59.9, adult; J45.901 Unspecified asthma with (acute) exacerbation; E66.01 Morbid (severe) obesity due to excess calories; F17.210 Nicotine dependence, cigarettes, uncomplicated; L02.31 Cutaneous abscess of buttock; Z59.01 Sheltered homelessness; E87.6 Hypokalemia
CPT/HCPCS: 0241U-QW; 36415; 36600; 71045-TC-FY; 71046-TC-FY; 71275-TC; 76604; 80048; 80053; 80061; 82803; 83036; 83735; 83880; 84484; 84702; 84703; 85025; 85027; 85379; 87070; 87205; 93005; 93010; 93306-TC; 94010; 94640; 94761; 97116-GP; 97161-GP; 99285-25; G0378; G0480; Q9967

== ENCOUNTER 2024-09-14 20:17 | Emergency (ER) | payer OTHER ==
[2024-09-14 20:23] VITALS: BP 134/82; PULSE 84; RESP 17; TEMP 98.6; BMI 60.5
[2024-09-14] MEDS: CLINDAMYCIN HCL 300 MG CAPSULE PO ONE (20:37)
[2024-09-14] MEDS ORDERED: CLINDAMYCIN HCL 150 MG CAPSULE (FP) ONE (20:38)
[2024-09-14] MEDS: CLINDAMYCIN HCL 150 MG CAPSULE (FP) PO ONE (20:47)
== END 2024-09-14 21:15 | disposition home or self-care (01) ==
LOC: JERFT 20:17
DX: L02.212 Cutaneous abscess of back [any part, except buttock and flank] (principal)
CPT/HCPCS: 99283-25

== ENCOUNTER 2024-10-07 12:36 | Emergency (ER) | payer OTHER ==
[2024-10-07] MEDS ORDERED: LIDOCAINE 4% PATCH TP ONE (13:39)
[2024-10-07] MEDS ORDERED: ACETAMINOPHEN 500 MG TABLET (FP) ONE (13:39)
[2024-10-07] MEDS ORDERED: IBUPROFEN 600 MG TABLET (FP) PO ONE (13:39)
[2024-10-07] MEDS: LIDOCAINE 4% PATCH TP ONE (13:48)
[2024-10-07] MEDS: IBUPROFEN 600 MG TABLET (FP) PO ONE (13:48)
[2024-10-07] MEDS: ACETAMINOPHEN 500 MG TABLET (FP) PO ONE (13:48)
[2024-10-07 15:19] VITALS: BP 102/63; PULSE 67; RESP 18; TEMP 98.5; BMI 60.5
[2024-10-07] MEDS ORDERED: LIDOCAINE PATCH REMOVAL MC SCH (22:00)
== END 2024-10-07 16:38 | disposition home or self-care (01) ==
LOC: JER 12:36
DX: M25.522 Pain in left elbow (principal); W00.0XXA Fall on same level due to ice and snow, initial encounter
CPT/HCPCS: 73502-TC-RT-FY; 73552-TC-RT-FY; 99283-25

== ENCOUNTER 2025-02-24 07:05 | Inpatient (IN) | payer OTHER ==
[2025-02-24] MEDS ORDERED: ALBUTEROL SO4 2.5/IPRATROPIUM 0.5 INH SOL 3 ML VIAL.NEB. NEB ONE (07:54)
[2025-02-24 08:14] LABS: ABSOLUTE IMMATURE GRANULOCYTES 0.03 x10^3/uL (0.0-0.031); BASOPHILS # 0.05 x10^3/uL (0.01-0.08); EOSINOPHIL % 3.8 % (0.7-5.8); EOSINOPHILS # 0.37 x10^3/uL (0.04-0.36); HEMATOCRIT 38.9 % (34.1-44.9); HEMOGLOBIN 11.6 g/dL (11.2-15.7); MCHC 29.8 g/dl (32.2-35.5); MEAN CELL VOLUME 88.8 fl (79.4-94.8); MEAN PLT VOLUME 9.4 fl (9.4-12.3); MONOCYTE # 0.99 x10^3/uL (0.24-0.86); MONOCYTE % 10.3 % (4.7-12.5); PLATELET COUNT 342 x10^3/uL (182-369); RDW 14.5 % (12.1-16.8)
[2025-02-24] MEDS: ALBUTEROL SO4 2.5/IPRATROPIUM 0.5 INH SOL 3 ML VIAL.NEB. NEB ONE (08:18)
[2025-02-24 08:26] LABS: VENOUS BASE EXCESS 6.5 mmol/L (-2-2); VENOUS O2 SATURATION 43.5 % (70-80); VENOUS PH 7.305 (7.310-7.410)
[2025-02-24 08:28] LABS: VENOUS PCO2 72.4 mmHg (38-52)
[2025-02-24 08:56] LABS: POTASSIUM 4.3 mmol/L (3.5-5.1)
[2025-02-24 08:58] LABS: ALBUMIN 2.9 g/dl (3.4-5.0); CALCIUM 9.2 mg/dL (8.5-10.1)
[2025-02-24 08:59] LABS: BLOOD UREA NITROGEN 10.1 mg/dL (7-18); MAGNESIUM 1.9 mg/dL (1.8-2.4)
[2025-02-24 09:02] LABS: CREATININE 0.7 mg/dL (0.55-1.3)
[2025-02-24 09:03] LABS: BILIRUBIN,TOTAL 0.3 mg/dL (0.2-1); TOT PROT 6.7 g/dl (6.4-8.2)
[2025-02-24 09:07] LABS: N-TERMINAL BNP 119.2 pg/ml (5-125)
[2025-02-24] MEDS ORDERED: CEFTRIAXONE 1 GM/50 ML BAG ONE (10:52)
[2025-02-24] MEDS ORDERED: AZITHROMYCIN IVPB 500 MG/250 ML BAG IVPB ONE (10:57)
[2025-02-24] MEDS: AZITHROMYCIN IVPB 500 MG in DEXTROSE 5%-WATER - 250 ML IVPB ONE (11:05)
[2025-02-24] MEDS ORDERED: ALBUTEROL SO4 2.5/IPRATROPIUM 0.5 INH SOL 3 ML VIAL.NEB. NEB PRN (11:28)
[2025-02-24 14:32] VITALS: BMI 66.4
[2025-02-24] MEDS: methylPREDNISolone NA SUCC 40 MG/1 ML VIAL IVPUSH SCH (17:21)
[2025-02-24 18:19] LABS: HIV INTERPRETATION NEGATIVE (NEGATIVE)
[2025-02-24 18:20] LABS: HCV DIAGNOSTIC IN-HOUSE W/RFLX NON-REACTIVE (NONREACTIVE)
[2025-02-24 21:31] LABS: ALLENS TEST POSITIVE; ARTERIAL BLD GAS O2 SATURATION 91.4 % (95-98); ARTERIAL BLOOD GAS PO2 65.5 mmHg (80-100); ARTERIAL BLOOD GAS pH 7.347 (7.350-7.450); O2 CONTENT 1.65 % vol
[2025-02-24] MEDS: guaiFENesin 200 MG/10 ML 10 ML UNIT-DOSE CUPS PO PRN (22:42)
[2025-02-25 08:25] LABS: ABSOLUTE IMMATURE GRANULOCYTES 0.09 x10^3/uL (0.0-0.031); BASOPHILS # 0.02 x10^3/uL (0.01-0.08); HEMATOCRIT 38.3 % (34.1-44.9); HEMOGLOBIN 11.2 g/dL (11.2-15.7); MCHC 29.2 g/dl (32.2-35.5); MEAN CELL VOLUME 89.9 fl (79.4-94.8); MEAN PLT VOLUME 9.7 fl (9.4-12.3); MONOCYTE # 0.41 x10^3/uL (0.24-0.86); MONOCYTE % 4.2 % (4.7-12.5); PLATELET COUNT 390 x10^3/uL (182-369); RDW 14.5 % (12.1-16.8)
[2025-02-25 08:45] LABS: POTASSIUM 4.7 mmol/L (3.5-5.1)
[2025-02-25 08:50] LABS: BLOOD UREA NITROGEN 12.2 mg/dL (7-18)
[2025-02-25 08:51] LABS: ALBUMIN 2.9 g/dl (3.4-5.0)
[2025-02-25 08:54] LABS: CREATININE 0.5 mg/dL (0.55-1.3)
[2025-02-25 08:55] LABS: BILIRUBIN,TOTAL 0.3 mg/dL (0.2-1); TOT PROT 6.8 g/dl (6.4-8.2)
[2025-02-25] MEDS: ENOXAPARIN NA (PORCINE) 40 MG/0.4 ML DISP.SYRIN SQ SCH (10:37)
[2025-02-25] MEDS: CEFTRIAXONE 1 GM in DEXTROSE 5%-WATER - 50 ML IVPB SCH (10:38)
[2025-02-25] MEDS ORDERED: ALBUTEROL SO4 HFA INHALER IH PRN (11:11)
[2025-02-25] MEDS: AZITHROMYCIN IVPB 500 MG/250 ML BAG IVPB SCH (11:57)
[2025-02-25] MEDS: ALBUTEROL SO4 2.5/IPRATROPIUM 0.5 INH SOL 3 ML VIAL.NEB. NEB SCH (11:59)
[2025-02-25] MEDS: BUDESONIDE/FORMETEROL FUMARATE 160/4.5 mcg INHALER IH SCH (14:41)
[2025-02-27 12:57] VITALS: BP 139/65; PULSE 77; RESP 23; TEMP 98.6
== END 2025-02-27 17:53 | disposition home or self-care (01) | DRG 139 ==
LOC: JER 07:05 → JERBED 11:06 → OBSVTOIN 11:26 → J7W 11:51
PROVIDERS: ADMIT Internal Medicine; ATTEND Internal Medicine
DX: J18.9 Pneumonia, unspecified organism (principal); J45.901 Unspecified asthma with (acute) exacerbation; I10 Essential (primary) hypertension; E66.01 Morbid (severe) obesity due to excess calories; Z68.44 Body mass index [BMI] 60.0-69.9, adult; J45.909 Unspecified asthma, uncomplicated; Z59.01 Sheltered homelessness; F17.210 Nicotine dependence, cigarettes, uncomplicated
CPT/HCPCS: 0241U-QW; 36415; 36600; 71045-TC-FY; 80053; 82803; 83735; 83880; 84484; 85025; 86803; 87389; 93005; 93010; 93970-TC; 94640; 99285-25; G0378